=== PATIENT | female | born 1945 | race African-American/Black ===

== ENCOUNTER 2024-08-29 17:10 | Inpatient (IN) | payer OTHER, MEDICARE ==
[~2024-08-29] VITALS: Ht 152.4 cm; Wt 63.5 kg
[2024-08-29 18:12] LABS: BASOPHILS % 1.7 % (0.0-2.0); DIFFERENTIAL COMMENT 0; EOSINOPHILS % 3.1 % (0.0-5.0); HEMATOCRIT. 37.9 % (36.0-48.0); LYMPHOCYTES % 49.6 % (20.0-50.0); MEAN CORPUSCULAR HEMOGLOBIN 23.4 pg (28.0-32.0); MEAN CORPUSCULAR HGB CONC 31.7 g/dL (31.0-37.0); MEAN CORPUSCULAR VOLUME 73.8 fL (81.0-99.0); MEAN PLATELET VOLUME 9.4 fl (7.4-10.4); MONOCYTES % 10.7 % (2.0-8.0); NEUTROPHILS % 34.9 % (40.0-76.0); PLATELET 195 x1000/uL (130-400); RED BLOOD CELL COUNT 5.13 mill/uL (4.2-5.4); RED CELL DISTRIBUTION WIDTH 15.8 % (11.6-14.6); WHITE BLOOD COUNT 6.4 x1000/uL (4.5-11.0)
[2024-08-29 18:14] LABS: CHLORIDE 106 mEq/L (98-107); POTASSIUM 3.6 mEq/L (3.5-5.1); SODIUM 141 mEq/L (136-145)
[2024-08-29 18:15] LABS: CALCIUM 10.1 mg/dL (8.7-10.4); CARBON DIOXIDE 25 mEq/L (21-32)
[2024-08-29 18:20] LABS: CREATININE 1.9 mg/dL (0.6-1.0); GLUCOSE 116 mg/dL (70-105); UREA NITROGEN BLOOD 16 mg/dL (9-23)
[2024-08-29 18:22] LABS: ALANINE AMINOTRANSFERASE 17 IU/L (10-49); ALBUMIN 4.2 g/dL (3.2-4.8); ASPARTATE AMINOTRANSFERASE 49 IU/L (<34); BILIRUBIN TOTAL 0.5 mg/dL (0.1-1.0); PHOSPHORUS 2.5 mg/dL (2.5-4.9); PROTEIN TOTAL 7.2 g/dL (6.0-8.3)
[2024-08-29 18:24] LABS: T4 FREE 1.71 ng/dL (0.89-1.76); THYROID STIMULATING HORMONE 2.24 uIU/mL (0.55-4.78)
[2024-08-29 18:38] LABS: TROPONIN I HIGH SENSITIVITY 47 ng/L (3.0-34)
[2024-08-29 21:43] LABS: TROPONIN I HIGH SENSITIVITY 56 ng/L (3.0-34)
[2024-08-29] MEDS: ASPIRIN 81MG TABLET PO ONE (21:50)
[2024-08-29] MEDS ORDERED: CARV25TA47 PO (23:07)
[2024-08-29] MEDS ORDERED: ATOR40TA70 PO (23:07)
[2024-08-29] MEDS ORDERED: HYDR100T31 PO (23:07)
[2024-08-29] MEDS ORDERED: EMPA25TA PO (23:07)
[2024-08-29] MEDS ORDERED: AMLO10TA80 PO (23:07)
[2024-08-29] MEDS ORDERED: FURO40TA5 PO (23:07)
[2024-08-29] MEDS ORDERED: IPRATROPIUM/ALBUTEROL 0.5-3(2.5)MG/3ML NEB NEB PRN (23:15)
[2024-08-29] MEDS ORDERED: ACETAMINOPHEN 325MG TABLET PO PRN (23:15)
[2024-08-29] MEDS ORDERED: ONDANSETRON HCL 4MG/2ML INJ IV PRN (23:15)
[2024-08-29] MEDS ORDERED: TRAMADOL 50MG TABLET PO PRN (23:15)
[2024-08-29] MEDS ORDERED: CLONIDINE 0.1MG TABLET PO PRN (23:15)
[2024-08-29] MEDS ORDERED: HYDROCODONE/ACETAMINOPHEN 5/325MG TABLET PO PRN (23:15)
[2024-08-30] MEDS: AMLODIPINE 10MG TABLET PO SCH (00:48)
[2024-08-30] MEDS: SODIUM CHLORIDE 0.9% 1,000 ML IV SCH (00:48)
[2024-08-30] MEDS: CARVEDILOL 12.5MG TABLET PO NR (00:48)
[2024-08-30] MEDS ORDERED: NALOXONE HCL 0.4MG/ML VIAL IV PRN (01:00)
[2024-08-30 04:35] VITALS: BP 157/54; PULSE 60; RESP 18; TEMP 36.3
[2024-08-30 08:00] VITALS: BP 150/54; PULSE 59; RESP 16; TEMP 36.2; O2SAT 98
[2024-08-30 08:00] LABS: BASOPHILS % 1.9 % (0.0-2.0); DIFFERENTIAL COMMENT 0; EOSINOPHILS % 2.4 % (0.0-5.0); HEMATOCRIT. 35.9 % (36.0-48.0); HEMOGLOBIN. 11.8 g/dL (12.0-16.0); MEAN CORPUSCULAR HEMOGLOBIN 24.1 pg (28.0-32.0); MEAN CORPUSCULAR HGB CONC 32.8 g/dL (31.0-37.0); MEAN CORPUSCULAR VOLUME 73.4 fL (81.0-99.0); MEAN PLATELET VOLUME 9.4 fl (7.4-10.4); MONOCYTES % 9.1 % (2.0-8.0); NEUTROPHILS % 38.6 % (40.0-76.0); PLATELET 197 x1000/uL (130-400); RED BLOOD CELL COUNT 4.89 mill/uL (4.2-5.4); RED CELL DISTRIBUTION WIDTH 15.8 % (11.6-14.6); WHITE BLOOD COUNT 5.4 x1000/uL (4.5-11.0)
[2024-08-30 08:11] LABS: CALCIUM 9.6 mg/dL (8.7-10.4)
[2024-08-30 08:16] LABS: CREATININE 1.7 mg/dL (0.6-1.0)
[2024-08-30 08:32] LABS: HEPATITIS B SURFACE ANTIGEN NEGATIVE (Negative)
[2024-08-30 08:47] LABS: POTASSIUM 2.8 mEq/L (3.5-5.1)
[2024-08-30 08:53] LABS: HEPATITIS C AB NON REACTIVE (Neg) (Negative)
[2024-08-30] MEDS: HYDRALAZINE HCL 100MG TABLET PO SCH (09:00)
[2024-08-30] MEDS: ENOXAPARIN 30MG/0.3ML SYR SUBCUT SCH (09:29)
[2024-08-30] MEDS: PANTOPRAZOLE SODIUM 40 MG/VIAL IV SCH (09:29)
[2024-08-30] MEDS: POTASSIUM CHLORIDE 20MEQ TABLET SR PO SCH (09:30)
[2024-08-30] MEDS: EMPAGLIFLOZIN 25MG TABLET PO SCH (09:30)
[2024-08-30] MEDS: KCL 20MEQ/100ML PREMIX 100 ML IV SCH (09:30)
[2024-08-30 09:38] LABS: TROPONIN I HIGH SENSITIVITY 56 ng/L (3.0-34)
[2024-08-30 12:00] VITALS: BP 121/77; PULSE 60; RESP 16; TEMP 36.6; O2SAT 98
[2024-08-30 16:00] VITALS: BP 143/52; PULSE 60; RESP 15; TEMP 36.5; O2SAT 100
[2024-08-30 17:17] LABS: TROPONIN I HIGH SENSITIVITY 55 ng/L (3.0-34)
[2024-08-30 20:00] VITALS: BP 145/57; PULSE 60; RESP 19; TEMP 36.4; O2SAT 97
[2024-08-30] MEDS: ATORVASTATIN CALCIUM 40MG TABLET PO SCH (21:01)
[2024-08-31] VITALS: BP 146/52; PULSE 60; RESP 19; TEMP 36.4
[2024-08-31 04:00] VITALS: BP 154/61; PULSE 60; RESP 19; TEMP 36.4
[2024-08-31 09:45] LABS: BASOPHILS % 3.2 % (0.0-2.0); DIFFERENTIAL COMMENT 0; EOSINOPHILS % 3.1 % (0.0-5.0); HEMATOCRIT. 37.2 % (36.0-48.0); HEMOGLOBIN. 12.1 g/dL (12.0-16.0); LYMPHOCYTES % 43.2 % (20.0-50.0); MEAN CORPUSCULAR HEMOGLOBIN 24.2 pg (28.0-32.0); MEAN CORPUSCULAR HGB CONC 32.7 g/dL (31.0-37.0); MEAN CORPUSCULAR VOLUME 74.1 fL (81.0-99.0); MEAN PLATELET VOLUME 9.6 fl (7.4-10.4); MONOCYTES % 9.1 % (2.0-8.0); NEUTROPHILS % 41.4 % (40.0-76.0); PLATELET 218 x1000/uL (130-400); RED BLOOD CELL COUNT 5.02 mill/uL (4.2-5.4); RED CELL DISTRIBUTION WIDTH 15.7 % (11.6-14.6); WHITE BLOOD COUNT 5.7 x1000/uL (4.5-11.0)
[2024-08-31] MEDS ORDERED: FURO40TA5 PO (10:03)
[2024-08-31] MEDS ORDERED: SPIR25TA MT (10:03)
[2024-08-31 10:25] LABS: POTASSIUM 3.4 mEq/L (3.5-5.1)
[2024-08-31 10:26] LABS: CALCIUM 9.9 mg/dL (8.7-10.4)
[2024-08-31 10:30] LABS: CREATININE 1.5 mg/dL (0.6-1.0)
[2024-08-31] MEDS ORDERED: POTASSIUM CHLORIDE 20MEQ TABLET SR PO ONE (11:00)
[2024-08-31] MEDS: POTASSIUM CHLORIDE 20MEQ TABLET SR PO SCH (11:24)
[2024-08-31 12:00] VITALS: BP 171/62; PULSE 60; RESP 18; TEMP 36.2; O2SAT 96
[2024-08-31 12:37] LABS: CARBON DIOXIDE 21 mEq/L (21-32); CHLORIDE 111 mEq/L (98-107); POTASSIUM 3.5 mEq/L (3.5-5.1); SODIUM 142 mEq/L (136-145)
[2024-08-31 12:43] LABS: CREATININE 1.5 mg/dL (0.6-1.0); GLUCOSE 104 mg/dL (70-105); UREA NITROGEN BLOOD 17 mg/dL (9-23)
[2024-08-31 12:45] LABS: PHOSPHORUS 1.7 mg/dL (2.5-4.9)
[2024-08-31 12:54] VITALS: BP 162/60; PULSE 60; TEMP 97.2; O2SAT 97
[2024-08-31] MEDS ORDERED: POTASSIUM-SODIUM PHOSPHATE POWDER PACKET PO NR (13:45)
[2024-09-03] MEDS ORDERED: FURO-151 MT (09:58)
== END 2024-08-31 15:00 | disposition home or self-care (01) | DRG 682 ==
LOC: ER 17:10 → 6WST 22:55 → EDBEDREQTM 08-30 01:53 → EDBEDREQ 08-30 01:53 → ENRESERV 08-30 02:25
PROVIDERS: ADMIT Internal Medicine; ATTEND Internal Medicine
DX: N17.9 Acute kidney failure, unspecified (principal); I21.4 Non-ST elevation (NSTEMI) myocardial infarction; I13.0 Hypertensive heart and chronic kidney disease with heart failure and stage 1 through stage 4 chronic kidney disease, or unspecified chronic kidney disease; I50.40 Unspecified combined systolic (congestive) and diastolic (congestive) heart failure; E11.22 Type 2 diabetes mellitus with diabetic chronic kidney disease; E78.5 Hyperlipidemia, unspecified; E87.6 Hypokalemia; J45.909 Unspecified asthma, uncomplicated; N18.9 Chronic kidney disease, unspecified; Z88.5 Allergy status to narcotic agent; Z95.0 Presence of cardiac pacemaker; Z88.8 Allergy status to other drugs, medicaments and biological substances
CPT/HCPCS: 36415; 71045; 80048; 80053; 83735; 83880; 84100; 84439; 84443; 84484; 85025; 86705; 87340; 93005; 93306; 93970; 99285; J1650; J2470; J3480